=== PATIENT | female | born 1990 | race African-American/Black ===

== ENCOUNTER 2017-10-20 20:31 | Emergency (ER) | payer MEDICAID, OTHER ==
[~2017-10-20] VITALS: Ht 157.5 cm; Wt 122.5 kg
[~2017-10-20 20:31] MED LIST: NOCURR
[2017-10-20 21:44] VITALS: BP 132/88
== END 2017-10-20 21:46 | disposition home or self-care (01) ==
LOC: EMS 20:32
DX: S83.92XA Sprain of unspecified site of left knee, initial encounter (principal); Z88.8 Allergy status to other drugs, medicaments and biological substances; W18.39XA Other fall on same level, initial encounter; Y93.89 Activity, other specified; Y92.89 Other specified places as the place of occurrence of the external cause; Y99.8 Other external cause status
CPT/HCPCS: 99284

== ENCOUNTER 2019-01-11 13:31 | Emergency (ER) | payer OTHER ==
[~2019-01-11] VITALS: Ht 157.5 cm; Wt 112.7 kg
[2019-01-11 13:42] VITALS: BP 149/98
[2019-01-11] MEDS ORDERED: IBUPROFEN 800 MG TABLET PO ONE (16:45)
== END 2019-01-11 17:16 | disposition home or self-care (01) ==
LOC: EMS 13:34
DX: S52.502A Unspecified fracture of the lower end of left radius, initial encounter for closed fracture (principal); Z88.8 Allergy status to other drugs, medicaments and biological substances; W18.39XA Other fall on same level, initial encounter; Y93.89 Activity, other specified; Y92.89 Other specified places as the place of occurrence of the external cause; Y99.8 Other external cause status